=== PATIENT | male | born 1970 | race Caucasian/White ===

== ENCOUNTER → 2022-03-04 16:26 | Outpatient (BNVA) | payer BC, SELFPAY | PROVIDERS: Family Provider Nurse Practitioner; PCP Nurse Practitioner; Visit Provider Nurse Practitioner Family | DX: L08.89 Other specified local infections of the skin and subcutaneous tissue (principal); R21 Rash and other nonspecific skin eruption; R35.0 Frequency of micturition; J43.9 Emphysema, unspecified; R73.9 Hyperglycemia, unspecified; Z13.6 Encounter for screening for cardiovascular disorders; Z12.11 Encounter for screening for malignant neoplasm of colon; Z12.5 Encounter for screening for malignant neoplasm of prostate | CPT/HCPCS: 80053; 80061; 82962; 83036; 83721; 84443; 85025; G0103 ==

== ENCOUNTER 2022-06-18 06:47 | Day surgery (SDC) | payer BC, SELFPAY ==
[2022-06-16 09:04] VITALS: BMI 35.9
[2022-06-18 07:17] VITALS: BP 111/78; PULSE 77; TEMP 36.5; O2SAT 96
[2022-06-18] MEDS: sodium chloride 0.9% 1,000 ML 30 ML IV (07:28)
--- NOTE | 2022-06-18 07:39 | ANES.PREANE2 ---
Pre-Anesthetic Assessment Height/Weight: Height 1.78 m Weight 113.398 kg Temp Pulse BP Pulse Ox O2 Del Method 97.7 F 77 111/78 96 06/18/22 07:17 06/18/22 07:17 06/18/22 07:17 06/18/22 07:17 06/18/22 07:17 Operation Date: 06/18/22 08:30 Proposed Procedures p Colonoscopy 70464,Z12.11(Not Applicable) - Bert Watson DO Familial anesthetic complications: none Was Beta Mich taken within 24 hours: N/A Was Clonidine taken within 24 hours: N/A Last intake: Intake Last Liquid Date 06/17/22 Last Liquid Time 22:00 Last Solid Date 06/16/22 Last Solid Time 18:00 Social No alcohol and No tobacco former smoker Exam alert, oriented x 3, clear to auscultation bilaterally and regular rate & rhythm Airway Mallampati: Class III Dentition: other (poor dentition) Pulmonary Chronic Obstructive Pulmonary Disease and Sleep Apnea GI Gastroesophageal Reflux Disease Metabolic Diabetes Mellitus Anesthetic Plan ASA status: 3 Anesthesia: MAC Risk of > 500 ml blood loss (7ml/kg in children): No Medications/Allergies Home Medications Medication Instructions Recorded Confirmed Last Taken Type omeprazole magnesium 20 mg 20 mg PO DAILY 02/25/22 06/18/22 06/15/22 History tablet,delayed release (Prilosec OTC) albuterol sulfate 90 mcg/actuation 2 puff inhalation QID PRN 03/04/22 06/18/22 03/31/22 Rx aerosol inhaler (ProAir HFA) shortness of breath or wheezing #6.7 grams budesonide-formoterol HFA 160 2 puff inhalation BID #10.2 grams 03/04/22 06/16/22 Unknown Rx mcg-4.5 mcg/actuation aerosol inhaler (Symbicort) cyanocobalamin (vitamin B-12) 1,000 mcg PO DAILY 04/04/22 06/18/22 06/17/22 History 1,000 mcg capsule fenofibrate nanocrystallized 48 mg 48 mg PO DAILY #30 tabs 04/07/22 06/18/22 06/17/22 Rx tablet (Tricor) metformin 500 mg tablet,extended 500 mg PO BID #60 tabs 04/07/22 06/18/22 06/16/22 Rx release 24hr Probiotic 1 tab PO DAILY 06/16/22 06/18/22 06/16/22 History magnesium 200 mg tablet 400 mg PO DAILY 06/16/22 06/18/22 06/16/22 History potassium 99 mg tablet 99 mg PO DAILY 06/16/22 06/18/22 06/16/22 History Allergies Allergy/AdvReac Type Severity Reaction Status Date / Time naproxen [From Aleve] Allergy ADR-Drowsy Verified 06/18/22 07:09 Current Medications Generic Name Dose Route Start Last Admin Trade Name Freq PRN Reason Stop Dose Admin Sodium Chloride 1,000 mls @ 30 mls/hr 06/18/22 07:00 06/18/22 07:28 Sodium Chloride 0.9% IV 06/19/22 06:59 30 mls/hr .Q24H DAPHNE Administration PFSH Anesthesia Surgical History History of hernia surgery Hx of cholecystectomy Hx of knee surgery Social History Smoking and tobacco status: former smoker Second hand smoke exposure: No Smoking risk assessment/counseling performed?: No Alcohol intake: former Desire information about alcohol rehabilitation?: No Counseling given: No Desire information about substance/drug rehabilitation?: No Counseling given: No Adopted: No Caregiver/support person: No Lives independently: Yes Household members: spouse Housing: House Marital status: service: No History of recent travel: No Data Anesthesia Cardiac Studies: No Data to Display
--- NOTE | 2022-06-18 08:36 | P.HP_ITS ---
Providers/Chief Complaint Primary Care Provider: JO ANN Lopez Chief Complaint: Need for colon cancer screening History of Present Illness Tee Pichardo is a 52 year old male who presents for a screening colonoscopy Review of Systems General: Reports: 10 or more systems reviewed and unremarkable except in HPI and below Medications/Allergies Home Medications Medication Instructions Recorded Confirmed Last Taken Type omeprazole magnesium 20 mg 20 mg PO DAILY 02/25/22 06/18/22 06/15/22 History tablet,delayed release (Prilosec OTC) albuterol sulfate 90 mcg/actuation 2 puff inhalation QID PRN 03/04/22 06/18/22 03/31/22 Rx aerosol inhaler (ProAir HFA) shortness of breath or wheezing #6.7 grams budesonide-formoterol HFA 160 2 puff inhalation BID #10.2 grams 03/04/22 06/16/22 Unknown Rx mcg-4.5 mcg/actuation aerosol inhaler (Symbicort) cyanocobalamin (vitamin B-12) 1,000 mcg PO DAILY 04/04/22 06/18/22 06/17/22 History 1,000 mcg capsule fenofibrate nanocrystallized 48 mg 48 mg PO DAILY #30 tabs 04/07/22 06/18/22 06/17/22 Rx tablet (Tricor) metformin 500 mg tablet,extended 500 mg PO BID #60 tabs 04/07/22 06/18/22 06/16/22 Rx release 24hr Probiotic 1 tab PO DAILY 06/16/22 06/18/22 06/16/22 History magnesium 200 mg tablet 400 mg PO DAILY 06/16/22 06/18/22 06/16/22 History potassium 99 mg tablet 99 mg PO DAILY 06/16/22 06/18/22 06/16/22 History Allergies Allergy/AdvReac Type Severity Reaction Status Date / Time naproxen [From Aleve] Allergy ADR-Drowsy Verified 06/18/22 07:09 PFSH Acute PFSH: Surgical History History of hernia surgery Hx of cholecystectomy Hx of knee surgery Social History Smoking and tobacco status: former smoker Second hand smoke exposure: No Smoking risk assessment/counseling performed?: No Alcohol intake: former Desire information about alcohol rehabilitation?: No Counseling given: No Desire information about substance/drug rehabilitation?: No Counseling given: No Adopted: No Caregiver/support person: No Lives independently: Yes Household members: spouse Housing: House Marital status: service: No History of recent travel: No Vitals/I&O/Wt Last Vital Signs Temp 97.7 F 06/18/22 07:17 Pulse 77 06/18/22 07:17 BP 111/78 06/18/22 07:17 Pulse Ox 96 06/18/22 07:17 O2 Del Method 06/18/22 07:17 Weight last 48 hrs Weight 250 lb Physical Exam Narrative: General : Patient is well developed , no acute distress, oriented x3 Head : Normal cephalic, a-traumatic. Ears : Pinnae and external canal are normal. Hearing is normal. Eyes : PERRLA, Sclera and injection are normal. No conjunctival discharge. Nose : Mucous membranes are without erythema. Throat : buccal mucosa is normal, gums are without significant recession or hypertrophy. Lungs : Equal chest rise bilaterally, no use of accessory muscles, trachea is midline. Cor : Rate and rhythm are normal. Abdomen : Soft, ND, NT, no g/r/m Extremities : No edema, no cyanosis or clubbing, dorsalis pedis pulses are present bilaterally, non-tender to palpation of calves. Upper extremities are normal bilaterally. Back : non-tender to palpation, no CVA tenderness. Neuro : CN II - XII intact, Upper and lower extremities have equal and full strength A&P Assessment and plan (1) Colon cancer screening: Status: Acute Plan Colonoscopy The risks and benefits of the procedure, including bleeding, infection, intestinal perforation requiring surgery, missed lesion, or explained to the patient. He is understanding of the risks and wishes to proceed. Attestations Medical Necessity Statement*: Will go home Coding Level of Care Code Acute Treasury Director for Brian Flores Diagnoses Colon cancer screening Z12.11
[2022-06-18 09:24] VITALS: BP 105/72; PULSE 78; RESP 18; TEMP 36.1; O2SAT 95
[2022-06-18 09:31] VITALS: BP 117/77; PULSE 77; RESP 18; O2SAT 94
--- NOTE | 2022-06-18 12:13 | ANE.PACU2 ---
Inpatient post-anesthesia follow up: Airway intact: Yes Vital signs: Temperature 97.0 F Pulse Rate 77 Respiratory Rate 18 Blood Pressure 117/77 Pulse Oximetry 94 Oxygen Delivery Me thod Room Air Oxygen Flow Rate 4 Fraction of Inspir ed Oxygen Hydration adequate: Yes Nausea and vomiting: No Pain level: 1 Mental status: Baseline
== END 2022-06-18 09:47 | disposition home or self-care (01) ==
PROVIDERS: PCP Nurse Practitioner; Visit Provider Surgery
PROC: 0DJD8ZZ Inspection of Lower Intestinal Tract, Via Natural or Artificial Opening Endoscopic (ICD-10-PCS; CPT 45378; principal; 2022-06-18 08:30)
DX: Z12.11 Encounter for screening for malignant neoplasm of colon (principal); D12.3 Benign neoplasm of transverse colon; K63.5 Polyp of colon; E11.9 Type 2 diabetes mellitus without complications; K21.9 Gastro-esophageal reflux disease without esophagitis; J44.9 Chronic obstructive pulmonary disease, unspecified; Z79.84 Long term (current) use of oral hypoglycemic drugs; Z87.891 Personal history of nicotine dependence
CPT/HCPCS: 45385; 88305; J2704; J7030

== ENCOUNTER → 2022-07-10 14:12 | Outpatient (BNVA) | payer BC, SELFPAY | PROVIDERS: PCP Nurse Practitioner; Visit Provider Nurse Practitioner Family | DX: E11.9 Type 2 diabetes mellitus without complications (principal); E78.5 Hyperlipidemia, unspecified; K21.9 Gastro-esophageal reflux disease without esophagitis; E78.1 Pure hyperglyceridemia; J43.9 Emphysema, unspecified | CPT/HCPCS: 80053; 80061; 83036; 85025 ==

== ENCOUNTER 2022-08-28 20:00 | Outpatient (CLI) | payer BC, SELFPAY | END 2022-08-28 20:01 | disposition home or self-care (01) | LOC: SLEEP 08-29 07:09 | PROVIDERS: PCP Nurse Practitioner; Visit Provider Nurse Practitioner Family | DX: G47.33 Obstructive sleep apnea (adult) (pediatric) (principal) | CPT/HCPCS: 95811 ==

== ENCOUNTER → 2022-10-27 14:57 | Outpatient (BNVA) | payer BC, SELFPAY | PROVIDERS: PCP Nurse Practitioner; Visit Provider Nurse Practitioner | DX: E11.9 Type 2 diabetes mellitus without complications (principal); Z87.891 Personal history of nicotine dependence | CPT/HCPCS: 71046; 80053; 81000; 83036 ==

== ENCOUNTER → 2023-01-15 15:52 | Outpatient (BNVA) | payer BC, SELFPAY | PROVIDERS: PCP Nurse Practitioner; Visit Provider Nurse Practitioner | DX: E11.22 Type 2 diabetes mellitus with diabetic chronic kidney disease (principal); N18.30 Chronic kidney disease, stage 3 unspecified; E78.5 Hyperlipidemia, unspecified | CPT/HCPCS: 80053; 80061; 81000; 82043; 83036 ==

== ENCOUNTER → 2023-04-09 15:27 | Outpatient (BNVA) | payer BC, SELFPAY | PROVIDERS: PCP Nurse Practitioner; Visit Provider Nurse Practitioner | DX: E11.22 Type 2 diabetes mellitus with diabetic chronic kidney disease (principal); N18.30 Chronic kidney disease, stage 3 unspecified | CPT/HCPCS: 80053; 81000; 83036 ==

== ENCOUNTER → 2023-07-09 15:21 | Outpatient (BNVA) | payer BC, SELFPAY | PROVIDERS: PCP Nurse Practitioner; Visit Provider Nurse Practitioner | DX: E11.9 Type 2 diabetes mellitus without complications (principal); N18.30 Chronic kidney disease, stage 3 unspecified; E78.1 Pure hyperglyceridemia; K21.9 Gastro-esophageal reflux disease without esophagitis | CPT/HCPCS: 80053; 81000; 83036 ==

== ENCOUNTER → 2023-10-01 15:03 | Outpatient (BNVA) | payer BC, SELFPAY | PROVIDERS: PCP Nurse Practitioner; Visit Provider Nurse Practitioner | DX: E11.9 Type 2 diabetes mellitus without complications (principal); N18.30 Chronic kidney disease, stage 3 unspecified; E78.1 Pure hyperglyceridemia; K21.9 Gastro-esophageal reflux disease without esophagitis | CPT/HCPCS: 80053; 80061; 81000; 83036 ==

== ENCOUNTER → 2024-03-15 16:30 | Outpatient (BNVA) | payer BC, SELFPAY | PROVIDERS: PCP Nurse Practitioner; Visit Provider Nurse Practitioner | DX: E11.9 Type 2 diabetes mellitus without complications (principal); Z12.5 Encounter for screening for malignant neoplasm of prostate | CPT/HCPCS: 80053; 80061; 82607; 83036; G0103 ==

== ENCOUNTER → 2024-03-28 11:39 | Outpatient (BNVA) | payer BC, SELFPAY | PROVIDERS: PCP Nurse Practitioner; Visit Provider Nurse Practitioner | DX: E11.65 Type 2 diabetes mellitus with hyperglycemia (principal) | CPT/HCPCS: 81000 ==

== ENCOUNTER → 2024-08-30 16:06 | Outpatient (BNVA) | payer BC, SELFPAY | PROVIDERS: PCP Nurse Practitioner; Visit Provider Nurse Practitioner | DX: E11.9 Type 2 diabetes mellitus without complications (principal) | CPT/HCPCS: 80053; 80061; 81000; 83036 ==

== ENCOUNTER → 2025-02-07 16:39 | Outpatient (BNVA) | payer BC, SELFPAY | PROVIDERS: PCP Nurse Practitioner; Visit Provider Nurse Practitioner | DX: E11.65 Type 2 diabetes mellitus with hyperglycemia (principal) | CPT/HCPCS: 80053; 80061; 81000; 83036 ==

== ENCOUNTER → 2025-08-01 16:14 | Outpatient (BNVA) | payer BC, SELFPAY | PROVIDERS: PCP Nurse Practitioner; Visit Provider Nurse Practitioner | DX: Z12.5 Encounter for screening for malignant neoplasm of prostate (principal); E11.65 Type 2 diabetes mellitus with hyperglycemia | CPT/HCPCS: 80053; 80061; 81000; 82043; 83036; G0103 ==